=== PATIENT | female | born 1950 | race Caucasian/White ===

== ENCOUNTER → 2017-06-18 13:55 | Outpatient (CLI) | payer MEDICARE, BC | END | disposition home or self-care (01) | LOC: D.MAMMO 13:45 | DX: Z12.31 Encounter for screening mammogram for malignant neoplasm of breast (principal) ==

== ENCOUNTER 2018-07-21 07:48 | Outpatient (CLI) | payer MEDICARE, BC | END 2018-07-21 23:59 | disposition home or self-care (01) | LOC: D.MAMMO 07:48 | DX: Z12.31 Encounter for screening mammogram for malignant neoplasm of breast (principal) ==

== ENCOUNTER 2018-09-08 08:15 | Emergency (ER) | payer MEDICARE, BC ==
[~2018-09-08] VITALS: Ht 152.4 cm; Wt 52.3 kg
[2018-09-08 08:22] VITALS: Ht 152.4 cm; Wt 52.3 kg
[2018-09-08] MEDS ORDERED: ZOCOR20 MG PO (08:23)
[2018-09-08 11:11] VITALS: BP 155/79
== END 2018-09-08 11:13 | disposition home or self-care (01) ==
LOC: D.ER 08:15
DX: M54.5 Low back pain (principal); S30.0XXA Contusion of lower back and pelvis, initial encounter; W01.0XXA Fall on same level from slipping, tripping and stumbling without subsequent striking against object, initial encounter; Y93.89 Activity, other specified; Y92.019 Unspecified place in single-family (private) house as the place of occurrence of the external cause; R51 Headache; M79.18 Myalgia, other site; M54.2 Cervicalgia

== ENCOUNTER → 2019-07-24 20:21 | Outpatient (CLI) | payer MEDICARE, BC ==
[2018-09-08 08:22] VITALS: BMI 22.5
[~2019-07-24 20:21] MED LIST: ZOCOR20 MG PO
== END | disposition home or self-care (01) ==
LOC: D.MAMMO 09:00
PROVIDERS: ATTEND Family Medicine
DX: Z12.31 Encounter for screening mammogram for malignant neoplasm of breast (principal)

== ENCOUNTER → 2019-09-04 11:30 | Outpatient (CLI) | payer MEDICARE, BC ==
[2018-09-08 08:22] VITALS: BMI 22.5
== END | disposition home or self-care (01) ==
LOC: D.MAMMO 11:30
PROVIDERS: ATTEND Family Medicine
DX: R92.8 Other abnormal and inconclusive findings on diagnostic imaging of breast (principal)